=== PATIENT | male | born 1975 | race Caucasian/White ===

== ENCOUNTER 2018-12-04 12:11 | Emergency (ER) | payer MEDICAID ==
[~2018-12-04] VITALS: Ht 177.8 cm; Wt 87.7 kg
[~2018-12-04 12:11] MED LIST: LISI10TA4 PO; NO HOME MEDS
[2018-12-04 12:19] VITALS: BP 135/87
[2018-12-04] MEDS ORDERED: aspirin 81mg tab.chew PO ONE (12:35)
[2018-12-04 12:58] LABS: BASOPHILS % (AUTO) 0.3 % (0-1); EOSINOPHILS # (AUTO) 0.2 X10'3 (0-0.9); EOSINOPHILS % (AUTO) 1.8 % (0-6); HEMATOCRIT 45.3 % (42.0-52.0); HEMOGLOBIN 14.8 g/dl (14.0-17.9); LYMPHOCYTES # (AUTO) 2.7 X10'3 (1.1-4.8); LYMPHOCYTES % (AUTO) 25.6 % (21-51); MEAN CORPUSCULAR HGB CONC 32.8 % (33.0-36.5); MEAN CORPUSCULAR VOLUME 91.5 FL (78-98); MEAN PLATELET VOLUME 9.5 FL (7.4-10.4); MONOCYTES # (AUTO) 0.9 X10'3 (0-0.9); NEUTROPHILS # (AUTO) 6.8 X10'3 (1.8-7.7); NEUTROPHILS % (AUTO) 63.3 % (42-75); PLATELET COUNT 257 X10'3 (140-440); RED BLOOD COUNT 4.94 X10'6 (4.70-6.10); RED CELL DISTRIBUTION WIDTH 13.3 % (11.5-14.5); WHITE BLOOD COUNT 10.6 X10'3 (4.5-11.0)
[2018-12-04 13:12] LABS: PARTIAL THROMBOPLASTIN TIME 31 SECONDS (22-32); PROTHROMBIN TIME 10.5 SECONDS (9.0-12.0)
[2018-12-04 13:15] LABS: ALANINE AMINOTRANSFERASE 27 U/L (12-78); ALBUMIN 4.5 G/DL (3.4-5.0); ALBUMIN/GLOBULIN RATIO 1.4 (1.1-1.5); ALKALINE PHOSPHATASE 57 IU/L (46-116); ANION GAP 11 (8-16); ASPARTATE AMINO TRANSFERASE 18 U/L (10-37); BILIRUBIN,TOTAL 0.8 MG/DL (0.1-1.0); BLOOD UREA NITROGEN 15 MG/DL (7-18); BUN/CREATININE RATIO 17.4 (5.4-32.0); CALCIUM 9.1 MG/DL (8.5-10.1); CHLORIDE 101 MMOL/L (99-107); CREATININE 0.86 MG/DL (0.60-1.10); GLUCOSE 93 MG/DL (70-104); POTASSIUM 3.9 MMOL/L (3.5-5.1); SODIUM 139 MMOL/L (135-145); TOTAL CARBON DIOXIDE 27.5 MMOL/L (24-32); TOTAL PROTEIN 7.8 G/DL (6.4-8.2); eGFR > 90 ML/MIN
[2018-12-04] MEDS ORDERED: naproxen 500mg tablet PO ONE (13:20)
[2018-12-04] MEDS ORDERED: NAPR-56 PO (13:21)
[2018-12-04] MEDS ORDERED: CYCL-1 PO (13:21)
[2018-12-04] MEDS ORDERED: ketorolac trometh inj. 60 MG/2 ML VIAL IM ONE (13:35)
[2018-12-04] MEDS ORDERED: triamcinolone acetonide 40mg/ml inj IM ONE (13:35)
[2018-12-04] MEDS ORDERED: HYDROcodone/acetaminophen 10/325mg tab PO ONE (13:45)
== END 2018-12-04 14:07 | disposition home or self-care (01) ==
LOC: ER 12:12
DX: R07.89 Other chest pain (principal); M25.512 Pain in left shoulder; M54.2 Cervicalgia; I10 Essential (primary) hypertension; F12.10 Cannabis abuse, uncomplicated; Z56.0 Unemployment, unspecified; Z79.899 Other long term (current) drug therapy
CPT/HCPCS: 36415; 71045; 72040; 73030; 80053; 84484; 85025; 85610; 85730; 93005; 96372; 99284; J1885; J3301

== ENCOUNTER 2021-12-31 14:54 | Emergency (ER) | payer MEDICAID ==
[~2021-12-31] VITALS: Ht 177.8 cm; Wt 100.0 kg
[~2021-12-31 14:54] MED LIST changes: +CYCL-1 PO; +LISI10TA27 PO; -LISI10TA4 PO
[2021-12-31 15:05] VITALS: BP 162/94
[2021-12-31] MEDS ORDERED: ketorolac trometh inj. 60 MG/2 ML VIAL IM ONE (16:30)
[2021-12-31] MEDS ORDERED: IBUP-1984 PO ×2 (16:32→17:00)
[2021-12-31] MEDS ORDERED: ketorolac tromethamine 15mg/ml inj. IM ONE (16:35)
== END 2021-12-31 17:02 | disposition home or self-care (01) ==
LOC: ER 14:55
DX: M79.671 Pain in right foot (principal); I10 Essential (primary) hypertension; F12.90 Cannabis use, unspecified, uncomplicated; Z79.899 Other long term (current) drug therapy
CPT/HCPCS: 73630; 96372; 99283; J1885